=== PATIENT | female | born 1945 | race Caucasian/White ===

== ENCOUNTER 2020-07-20 11:54 | Emergency (ER) | payer SELFPAY ==
[~2020-07-20] VITALS: Ht 157.5 cm; Wt 73.0 kg
[~2020-07-20 11:54] MED LIST: AMLO1CAP2 PO; ASPI-1497 PO; ATOR40TA70 PO; LOSA100T32 PO; PARO-41 PO
[2020-07-20 11:58] VITALS: BP 144/74
[2020-07-20] MEDS ORDERED: TETANUS, DIPHTHERIA, PERTUSSIS VAC/PF 0.5ML (>7YR OLD) IM ONE (12:45)
[2020-07-20] MEDS ORDERED: AMOX-424 MT (12:48)
[2020-07-20] MEDS ORDERED: TOPUD PO (12:50)
== END 2020-07-20 13:21 | disposition home or self-care (01) ==
LOC: ER 11:54
DX: S51.052A Open bite, left elbow, initial encounter (principal); W54.0XXA Bitten by dog, initial encounter; Y93.89 Activity, other specified; Y92.89 Other specified places as the place of occurrence of the external cause; I10 Essential (primary) hypertension; E78.5 Hyperlipidemia, unspecified; Z79.899 Other long term (current) drug therapy; E11.9 Type 2 diabetes mellitus without complications; Z23 Encounter for immunization
CPT/HCPCS: 82962; 90471; 90715; 99283